=== PATIENT | male | born 1970 | race Caucasian/White ===

== ENCOUNTER 2022-11-23 07:32 | Outpatient (CLI) | payer MEDICARE ==
[2022-11-23] MEDS ORDERED: Iopamidol 370 76% 100 ML VIAL ONE (09:20)
== END 2022-11-23 07:33 | disposition home or self-care (01) ==
LOC: CT 07:32
PROVIDERS: ATTEND Internal Medicine Endocrinology, Diabetes & Metabolism
DX: D35.01 Benign neoplasm of right adrenal gland (principal); E27.8 Other specified disorders of adrenal gland
CPT/HCPCS: 74170; Q9967

== ENCOUNTER 2022-12-23 07:50 | Day surgery (SDC) | payer MEDICARE ==
[2022-12-21 15:45] VITALS: BMI 54.1
[2022-12-23] MEDS ORDERED: Midazolam HCl 2 mg/2 ml Vial ONE (09:57)
[2022-12-23] MEDS ORDERED: CEFAZOLIN 2 GM VIAL ONE (09:57)
[2022-12-23] MEDS ORDERED: Sodium Chloride 0.9% 100 ML ONE (09:57)
[2022-12-23] MEDS ORDERED: SUGAMMADEX SODIUM 200 MG/2 ML VIAL ONE (10:06)
[2022-12-23] MEDS ORDERED: fentaNYL PF 100 MCG/2 ML SYRINGE ONE (10:06)
[2022-12-23] MEDS ORDERED: Bupivacaine/Epinephrine 0.25% 30 ML VIAL ONE (10:08)
[2022-12-23] MEDS ORDERED: PROPOFOL 200 MG/20 ML VIAL ONE (10:25)
[2022-12-23] MEDS ORDERED: Succinylcholine Chloride 100 MG/5 ML SYRINGE FS ONE (10:25)
[2022-12-23] MEDS ORDERED: Rocuronium Bromide 10 MG/ML (10ML VIAL) ONE (10:25)
[2022-12-23] MEDS ORDERED: Ondansetron PF 4 MG/2 ML Vial ONE (10:25)
[2022-12-23] MEDS ORDERED: Dexamethasone 20 MG/5 ML VIAL ONE (10:25)
[2022-12-23] MEDS ORDERED: Glycopyrrolate 0.2 MG/ML 5 ML SYRINGE ONE (10:25)
[2022-12-23] MEDS ORDERED: NEOSTIGMINE 3 MG/3 ML SYR 3 MG/3 ML SYRINGE ONE (10:25)
[2022-12-23] MEDS ORDERED: Lidocaine 1% PF 5 ML VIAL ONE (10:25)
[2022-12-23] MEDS ORDERED: Fentanyl 100 MCG/2 ML VIAL ONE ×2 (11:26→11:52)
[2022-12-23] MEDS ORDERED: HYDROcodone/Acetaminophen 5/325 mg Tablet ONE (12:46)
== END 2022-12-23 14:00 | disposition home or self-care (01) ==
LOC: SDC 07:50
PROVIDERS: ATTEND Surgery
PROC: 0WUF0JZ Supplement Abdominal Wall with Synthetic Substitute, Open Approach (ICD-10-PCS; principal; 2022-12-23)
DX: K42.9 Umbilical hernia without obstruction or gangrene (principal); E03.9 Hypothyroidism, unspecified; I10 Essential (primary) hypertension; F17.210 Nicotine dependence, cigarettes, uncomplicated; Z79.890 Hormone replacement therapy; Z79.899 Other long term (current) drug therapy
CPT/HCPCS: 49591; C1889; J1100; J2250; J2405; J2704; J3010; J3490

== ENCOUNTER 2023-01-26 14:02 | Outpatient (CLI) | payer OTHER | END 2023-01-26 14:03 | disposition home or self-care (01) | LOC: DTY/OP 14:02 | PROVIDERS: ATTEND Surgery | DX: E66.01 Morbid (severe) obesity due to excess calories (principal) | CPT/HCPCS: 97802 ==

== ENCOUNTER 2023-05-24 11:00 | Inpatient (IN) | payer MEDICARE ==
[2023-05-24 11:36] VITALS: BMI 40.1
[2023-06-14] MEDS ORDERED: Heparin 5,000 UNITS/ML VIAL ONE (09:37)
[2023-06-14] MEDS ORDERED: fentaNYL PF 100 MCG/2 ML SYRINGE ONE (12:13)
[2023-06-14] MEDS ORDERED: Ketamine 50 MG/ML (10ML VIAL) ONE (12:13)
[2023-06-14] MEDS ORDERED: EPINEPHrine 1 MG/ML AMP ONE (12:22)
[2023-06-14] MEDS ORDERED: Bupivacaine 0.25% HCL 30 ML VIAL ONE (12:22)
[2023-06-14] MEDS ORDERED: Sodium Chloride 0.9% 100 ML ONE (12:36)
[2023-06-14] MEDS ORDERED: CEFAZOLIN 2 GM VIAL ONE (12:36)
[2023-06-14] MEDS ORDERED: Dexamethasone 20 MG/5 ML VIAL ONE (12:48)
[2023-06-14] MEDS ORDERED: NEOSTIGMINE 3 MG/3 ML SYR 3 MG/3 ML SYRINGE ONE (12:48)
[2023-06-14] MEDS ORDERED: Lidocaine 1% PF 5 ML VIAL ONE (12:48)
[2023-06-14] MEDS ORDERED: Ondansetron PF 4 MG/2 ML Vial ONE (12:48)
[2023-06-14] MEDS ORDERED: Glycopyrrolate 0.2 MG/ML 5 ML SYRINGE ONE (12:48)
[2023-06-14] MEDS ORDERED: PROPOFOL 200 MG/20 ML VIAL ONE (12:48)
[2023-06-14] MEDS ORDERED: Rocuronium Bromide 10 MG/ML (10ML VIAL) ONE (12:48)
[2023-06-14] MEDS ORDERED: Esmolol 100 MG/10 ML VIAL ONE (12:48)
[2023-06-14] MEDS ORDERED: FENTANYL 500 MCG/10 ML VIAL 2,000 MCG in Sodium Chloride 0.9% 60 ML IV PRN (13:23)
[2023-06-14] MEDS ORDERED: diphenhydrAMINE 50 MG/ML VIAL IVP PRN ×2 (13:23→14:48)
[2023-06-14] MEDS ORDERED: Ondansetron PF 4 MG/2 ML Vial IVP PRN ×2 (13:23→14:48)
[2023-06-14] MEDS ORDERED: diphenhydrAMINE 50 MG/ML VIAL IM PRN (13:23)
[2023-06-14] MEDS ORDERED: diphenhydrAMINE 25 MG CAP PO PRN (13:23)
[2023-06-14] MEDS ORDERED: Ondansetron HCl/PF 4 MG/2 ML Vial IVP PRN (13:23)
[2023-06-14] MEDS ORDERED: Naloxone HCl 0.4 mg/ml Vial IV PRN (13:23)
[2023-06-14] MEDS ORDERED: Promethazine HCl 25 MG/ML VIAL IM PRN ×3 (13:23→14:48)
[2023-06-14] MEDS ORDERED: ACTIVE PCA FS PRN (13:30)
[2023-06-14] MEDS ORDERED: Dextrose 5% in Water 1,000 ML IV PRN (14:48)
[2023-06-14] MEDS ORDERED: Ipratropium/Albuterol 3 ML NEB NEB PRN (14:48)
[2023-06-14] MEDS ORDERED: hydrALAZINE 20 MG/ML VIAL SLOW IVP PRN (14:48)
[2023-06-14] MEDS ORDERED: Glucagon 1 MG/ML KIT IM PRN (14:48)
[2023-06-14] MEDS ORDERED: Dextrose 50% Abboject 50 ML SYRINGE SLOW IVP PRN (14:48)
[2023-06-14] MEDS ORDERED: D5 1/2 NS w/20 mEq KCL 1,000 ML ONE (15:00)
[2023-06-14] MEDS: D5 1/2 NS w/20 mEq KCL 1,000 ML IV SCH ×2 (15:10→23:09)
[2023-06-15] MEDS: D5 1/2 NS w/20 mEq KCL 1,000 ML IV SCH (05:38)
[2023-06-15 05:56] LABS: #Monocytes 0.9 thou/uL (0.11-0.59); #Neutrophils 8.2 thou/uL (1.40-6.50); %Basophils 0.2 % (0.0-1.0); %Eosinophils 0.1 % (0.0-10.0); %Lymphocytes 24.4 % (21.0-51.0); %Monocytes 7.5 % (0.0-10.0); %Neutrophils 67.5 % (42.0-75.0); Hematocrit 42.2 % (42.0-52.0); Hemoglobin 14.1 g/dL (14.0-18.0); Mean Corpuscular HGB CONC 33.4 g/dL (32.0-36.0); Mean Corpuscular Volume 95.7 fl (78.0-98.0); Mean Platelet Volume 10.3 fL (7.4-10.4); Platelet Count 215 10x3/uL (130-400); RBC Distribution Width 13.4 % (11.5-14.5); Red Blood Cell (RBC) Count 4.41 mill/uL (4.70-6.10); White Blood Cell (WBC) Count 12.1 10x3/uL (4.8-10.8)
[2023-06-15] MEDS ORDERED: Levothyroxine Sodium 25 MCG TAB PO SCH (06:00)
[2023-06-15] MEDS ORDERED: Levothyroxine Sodium 112 MCG TAB PO SCH (06:00)
[2023-06-15] MEDS: Hydrocodone-Acetamin 15 ML UDCUP PO PRN ×2 (06:18→10:41)
[2023-06-15 06:33] LABS: Anion Gap 13 mmol/L (10-20); BUN (Urea Nitrogen) 7 mg/dL (8.4-25.7); Calc. Creatinine Clearance 146 mL/min (70-130); Calcium 8.7 mg/dL (7.8-10.44); Carbon Dioxide 24 mmol/L (22-29); Chloride 104 mmol/L (98-107); Estimated GFR 104; Glucose 80 mg/dL (70-105); Potassium 3.8 mmol/L (3.5-5.1); Sodium 137 mmol/L (136-145)
[2023-06-15] MEDS ORDERED: Lisinopril 20 MG TAB PO SCH (09:00)
[2023-06-15] MEDS ORDERED: Pantoprazole 40 MG VIAL IVP SCH (09:00)
[2023-06-15] MEDS ORDERED: Loratadine 10 MG TAB PO SCH (09:00)
[2023-06-15 11:29] VITALS: BP 152/81; TEMP 98.4
== END 2023-06-15 11:10 | disposition home or self-care (01) | DRG 621 ==
LOC: SURG A 06-14 08:46
PROVIDERS: ADMIT Surgery; ATTEND Surgery
PROC: 0DB64Z3 Excision of Stomach, Percutaneous Endoscopic Approach, Vertical (ICD-10-PCS; principal; 2023-06-14)
PROC: 8E0W4CZ Robotic Assisted Procedure of Trunk Region, Percutaneous Endoscopic Approach (ICD-10-PCS; 2023-06-14)
DX: E66.01 Morbid (severe) obesity due to excess calories (principal); Z68.41 Body mass index [BMI] 40.0-44.9, adult; I10 Essential (primary) hypertension; G47.30 Sleep apnea, unspecified; E03.9 Hypothyroidism, unspecified; Z98.890 Other specified postprocedural states
CPT/HCPCS: 36415; 80048; 85025; 88307; C9113; J0171; J1100; J1644; J1650; J2405; J2704; J3480; J3490; S0020